=== PATIENT | female | born 1990 | race Caucasian/White ===

== ENCOUNTER 2017-08-12 21:12 | Emergency (ER) | payer SELFPAY ==
[2015-06-21 15:17] VITALS: BMI 60.3
[2017-08-12 21:48] LABS: APPEARANCE CLEAR (CLEAR); BILIRUBIN NEGATIVE (NEGATIVE); COLOR YELLOW (YELLOW); GLUCOSE NEGATIVE (NEGATIVE); KETONE NEGATIVE (NEGATIVE); NITRITE NEGATIVE (NEGATIVE); PROTEIN TRACE mg/dL (NEGATIVE); SPECIFIC GRAVITY 1.015 (1.005-1.020); UROBILINOGEN NORMAL (NORMAL)
[2017-08-12 23:09] LABS: HCG URINE NEGATIVE (NEGATIVE)
[2017-08-12 23:21] LABS: HEMATOCRIT 39.1 % (36.0-48.0); HEMOGLOBIN 12.3 g/dL (12-16); LYMPHOCYTES 11.2 % (15-50); MCH 23.8 pg (26.0-34.0); MCHC 31.5 g/dL (31.0-37.0); MCV 75.8 fL (80.0-100.0); MEAN PLATELET VOLUME 9.3 fL (7.4-10.4); NEUTROPHILS 81.5 % (40-80); PLATELET COUNT 347 10x3/uL (130-400); RBC 5.16 10x6/uL (4.00-5.40); RDW 15.5 % (11.5-14.5)
[2017-08-12 23:31] LABS: ALBUMIN 3.1 g/dL (3.4-5.0); ALKALINE PHOSPHATASE 55 U/L (46-116); ALT (SGPT) 36 U/L (10-68); AMYLASE - SERUM 24 U/L (25-115); BILIRUBIN - TOTAL 0.28 mg/dL (0.2-1.3); CALC OSMOLALITY 274 mosm/kg (275-300); CALCIUM 9.4 mg/dL (8.5-10.1); CARBON DIOXIDE 29.8 mmol/L (21.0-32.0); CHLORIDE - SERUM 102 mmol/L (98-107); CREATININE - SERUM 0.8 mg/dL (0.6-1.3); GLUCOSE 107 mg/dL (74-106); LIPASE 90 U/L (73-393); PROTEIN - SERUM 8.2 g/dL (6.4-8.2); SODIUM 138 mmol/L (136-145); UREA NITROGEN 11 mg/dL (7-18); eGFR NON AFRICAN AMERICAN > 90 mL/min (90-120)
== END 2017-08-13 01:48 | disposition home or self-care (01) ==
LOC: D.ER 21:12
PROVIDERS: Family Medicine
DX: M54.5 Low back pain (principal)

== ENCOUNTER 2017-09-15 14:28 | Emergency (ER) | payer SELFPAY ==
[~2017-09-15] VITALS: Ht 160 cm; Wt 154.5 kg
[2017-09-15 15:41] VITALS: Ht 160 cm; Wt 154.5 kg
[2017-09-15] MEDS ORDERED: VOLTAREN75 MG PO (19:26)
[2017-09-15] MEDS ORDERED: AMOXICILLIN500 M1 PO (19:26)
[2017-09-15 19:30] VITALS: BP 136/84
== END 2017-09-15 19:31 | disposition home or self-care (01) ==
LOC: D.ER 14:28
DX: H66.92 Otitis media, unspecified, left ear (principal)

== ENCOUNTER 2017-09-21 10:06 | Emergency (ER) | payer SELFPAY ==
[~2017-09-21] VITALS: Ht 160 cm; Wt 154.5 kg
[~2017-09-21 10:06] MED LIST: AMOXICILLIN500 M1 PO; VOLTAREN75 MG PO
[2017-09-21 10:14] VITALS: BP 153/99; Ht 160 cm; Wt 154.5 kg
[2017-09-21] MEDS ORDERED: ULTRAM50 MG PO (11:26)
[2017-09-21] MEDS ORDERED: NEO/POLYMYXIN/H10 ML LEFT EAR (11:26)
== END 2017-09-21 11:50 | disposition home or self-care (01) ==
LOC: D.ER 10:06
DX: H60.92 Unspecified otitis externa, left ear (principal); H92.02 Otalgia, left ear